=== PATIENT | male | born 1950 | race African-American/Black ===

== ENCOUNTER 2017-10-27 02:03 | Emergency (ER) | payer OTHER ==
[~2017-10-27] VITALS: Ht 160 cm; Wt 73.8 kg
[~2017-10-27 02:03] MED LIST: ATORVASTATIN CA10 MG PO; Ascorbic Acid PO; BACTRIM,SEPT1 TABLET PO; BLOOD PRESSURE MED PO; CELEBREX200 MG PO; COUMADIN,JANTOVE2 MG PO; FERROUS SULFAT325 MG PO; Feosol PO; LIPITOR20 MG PO; NORVASC5 MG PO; OMEPRAZOLE40 M1 PO; PERCOCET 5/31 TABLET PO; PRILOSEC10 MG PO; SENOKOT S,PE1 TABLET PO; SIMVASTATIN80 MG PO; TYLENOL REGULA325 MG PO; ZOFRAN4 MG PO
[2017-10-27 02:30] LABS: HEMATOCRIT 43.1 % (38.0-50.0); HEMOGLOBIN 15.2 G/DL (12.5-16.6); MCH 29.7 PG (29.0-34.0); MCHC 35.3 G/DL (30.0-36.0); MCV 84.2 FL (86-99); PLATELET COUNT 201 K/uL (156-360); RBC DIS.WIDTH-CV 12.6 % (11.8-14.6); RBC DIS.WIDTH-SD 38.8 % (39-53); RED BLOOD COUNT 5.12 M/uL (4.00-5.50); WHITE BLOOD COUNT 7.1 K/uL (4.1-10.2)
[2017-10-27 02:50] LABS: CHLORIDE 107 mEq/L (99-109); POTASSIUM 3.8 mEq/L (3.7-5.4); SODIUM 136 mEq/L (136-147)
[2017-10-27 02:51] LABS: GLUCOSE 118 mg/dL (70-99)
[2017-10-27 02:55] LABS: CREATININE 1.1 mg/dL (0.6-1.3); GFR ESTIMATE (CALCULATED) > 59 mL/min/ (58.99-99999)
[2017-10-27 02:56] LABS: UREA NITROGEN (BUN) 16 mg/dL (9-23)
[2017-10-27 03:02] LABS: TROP-I INTERPRETATION NEGATIVE; TROPONIN-I < 0.01 ng/mL (0.0-0.30)
[2017-10-27 05:41] LABS: TOTAL PROTEIN 7.3 g/dL (6.4-8.3)
[2017-10-27 05:42] LABS: TOTAL BILIRUBIN 0.2 mg/dL (0.0-1.0)
[2017-10-27 05:44] LABS: ALKALINE PHOSPHATASE 120 IU/L (3-129)
[2017-10-27 05:46] LABS: AST (GOT) 24 IU/L (2-34)
[2017-10-27 05:47] LABS: ALT (GPT) 34 IU/L (3-49); LIPASE 85 U/L (1.0-51.0)
[2017-10-27] MEDS ORDERED: PEPCID20 MG PO (05:49)
[2017-10-27] MEDS ORDERED: BENTYL20 MG PO (05:49)
[2017-10-27 06:09] VITALS: BP 131/90
[2017-10-27 06:16] LABS: DIRECT BILIRUBIN 0.1 mg/dL (0.0-0.3)
== END 2017-10-27 06:11 | disposition home or self-care (01) ==
LOC: EME 02:03
DX: K44.9 Diaphragmatic hernia without obstruction or gangrene (principal); R07.89 Other chest pain; R04.0 Epistaxis; R10.13 Epigastric pain; E78.5 Hyperlipidemia, unspecified; I10 Essential (primary) hypertension; K21.9 Gastro-esophageal reflux disease without esophagitis; Z96.643 Presence of artificial hip joint, bilateral; F31.9 Bipolar disorder, unspecified; Z88.1 Allergy status to other antibiotic agents; Z88.5 Allergy status to narcotic agent
CPT/HCPCS: 71046; 74176; 80048; 80076; 83690; 84484; 85027; 93005; 99281; 99285; J0780; J1200; J7030

== ENCOUNTER 2018-02-09 14:35 | Emergency (ER) | payer OTHER ==
[~2018-02-09] VITALS: Ht 160 cm; Wt 74.6 kg
[~2018-02-09 14:35] MED LIST changes: +BENTYL20 MG PO; +PEPCID20 MG PO
[2018-02-09 18:47] VITALS: BP 165/100
== END 2018-02-09 18:48 | disposition home or self-care (01) ==
LOC: EME 14:35
PROC: 0SS9XZZ Reposition Right Hip Joint, External Approach (ICD-10-PCS; principal; 2018-02-09)
DX: T84.020A Dislocation of internal right hip prosthesis, initial encounter (principal); Y79.2 Prosthetic and other implants, materials and accessory orthopedic devices associated with adverse incidents; Z96.643 Presence of artificial hip joint, bilateral; E78.5 Hyperlipidemia, unspecified; I10 Essential (primary) hypertension; K21.9 Gastro-esophageal reflux disease without esophagitis; Z88.1 Allergy status to other antibiotic agents; Z88.5 Allergy status to narcotic agent
CPT/HCPCS: 73501; 73502; 99281; 99285; J3010